=== PATIENT | female | born 1975 | race Caucasian/White ===

== ENCOUNTER 2018-10-07 16:16 | Emergency (ER) | payer OTHER, MEDICARE ==
[~2018-10-07] VITALS: Ht 180.3 cm; Wt 80.0 kg
[2018-10-07 17:48] VITALS: BP 151/89
[2018-10-07] MEDS ORDERED: FLEXERIL PO (17:53)
[2018-10-07] MEDS ORDERED: ULTRAM50 M1 PO ×2 (17:53→17:55)
[2018-10-07] MEDS ORDERED: TORADOL PO (17:53)
== END 2018-10-07 18:15 | disposition home or self-care (01) | DRG 103 ==
LOC: ED 16:16
DX: R51 Headache (principal); M54.5 Low back pain; V43.53XA Car driver injured in collision with pick-up truck in traffic accident, initial encounter; Y92.411 Interstate highway as the place of occurrence of the external cause